=== PATIENT | male | born 1960 | race Caucasian/White ===

== ENCOUNTER 2022-08-04 01:23 | Day surgery (SDC) | payer BC, SELFPAY ==
[2022-07-27 13:09] VITALS: BMI 35.6
--- NOTE | 2022-08-03 12:42 | PM.HPGS ---
History of Present Illness History of Present Illness Consent: Risks, benefits, and alternatives have been discussed and questions answered. Patient agrees to proceed with procedure. Chief complaint: neoplasm screening, hx of colon polyps Narrative: Mir Gross is a 62 year old male who was referred for colon cancer screening. He had a colonoscopy about 4 years ago with removal of 3 polyps. Review of Systems Review of Systems: All systems reviewed & are unremarkable except as noted in HPI and below PMFSH Past Medical History Medical History Parkinsons disease Family History Family History Father Patient's father is , Onset Age: 92 Mother Family history of congestive heart failure, Onset Age: 92 Social History Social History Smoking status: Former smoker Tobacco type: cigarettes Alcohol intake: never Substance use type: does not use Living arrangements: with family Spiritual care concerns: No Meds Home Medications and Allergies Home Medications Medication Instructions Recorded Confirmed Type metoprolol succinate 50 mg 50 mg PO DAILY #90 tabs 01/12/22 07/27/22 Rx tablet,extended release 24 hr celecoxib 100 mg capsule (Celebrex) 100 mg PO BID PRN pain #30 caps 06/17/22 07/27/22 Rx clonazepam 1 mg tablet 1 mg PO DAILY PRN anx #30 tabs 06/17/22 07/27/22 Rx escitalopram oxalate 10 mg tablet 10 mg PO DAILY #30 tabs 07/13/22 07/27/22 Rx Allergies Allergy/AdvReac Type Severity Reaction Status Date / Time hydrocodone Allergy Unknown ITCHING Verified 08/04/22 07:47 Exam Const: General: alert Orientation/consciousness: patient oriented x3 Resp: Auscultation: clear to auscultation bilaterally Cardio: Rhythm: regular rhythm GI: GI Palp: Yes Soft to palpation and No Tenderness to palpation present (GI) Neuro: General: patient oriented x3 Assessment and Plan Assessment and plan (1) Colon cancer screening: Code(s): Z12.11 - Encounter for screening for malignant neoplasm of colon Status: Acute Assessment and Plan: Colonoscopy with possible biopsy or polypectomy or cautery or injection of substances.
[2022-08-04 07:48] VITALS: BP 135/91; PULSE 73; RESP 20; TEMP 36.3; O2SAT 99
[2022-08-04] MEDS: LACTATED RINGERS 1,000 ML 150 ML IV CONT (07:57)
--- NOTE | 2022-08-04 08:07 | WPDANESEPPF ---
Anes - Initial Pre Proc Eval Procedure: Operation Date: 08/04/22 09:15 Proposed Procedures p Screening Colonoscopy - Lencho Vazquez MD Date/Time: 08/04/22 08:07 Surgeon: Lencho Vazquez MD Pre Op Diagnosis: neoplasm screening, hx of colon polyps Patient Data Age: 62 Gender: M Height: 1.96 m Weight: 130.4 kg Last Vital Signs Temp 97.3 F L 08/04/22 07:48 Pulse 73 08/04/22 07:48 Resp 20 08/04/22 07:48 BP 135/91 H 08/04/22 07:48 Pulse Ox 99 08/04/22 07:48 O2 Del Method Room Air 08/04/22 07:48 Allergies Allergy/AdvReac Type Severity Reaction Status Date / Time hydrocodone Allergy Unknown ITCHING Verified 08/04/22 07:47 Home Medications Medication Instructions Recorded Confirmed Type metoprolol succinate 50 mg 50 mg PO DAILY #90 tabs 01/12/22 07/27/22 Rx tablet,extended release 24 hr celecoxib 100 mg capsule (Celebrex) 100 mg PO BID PRN pain #30 caps 06/17/22 07/27/22 Rx clonazepam 1 mg tablet 1 mg PO DAILY PRN anx #30 tabs 06/17/22 07/27/22 Rx escitalopram oxalate 10 mg tablet 10 mg PO DAILY #30 tabs 07/13/22 07/27/22 Rx Patient hx anesthesia problems: none Family hx anesthesia problems: none Results Review: All pre-operative results and documents have been reviewed as part of the pre-operative evaluation. FOR[facility], [facility] Past Medical History Medical History Parkinsons disease Family History Family History Father Patient's father is , Onset Age: 92 Mother Family history of congestive heart failure, Onset Age: 92 Social History Social History Smoking status: Former smoker Tobacco type: cigarettes Alcohol intake: never Substance use type: does not use Living arrangements: with family Spiritual care concerns: No Anes - Eval Final PreProcedure Day of Procedure 08/04/22 08:07 Patient weight: obese Heart: regular rate and rhythm Lungs: clear to auscultation Airway: Mallampati scale class II Neurological: alert and oriented Last oral intake: >/= 8 hours ASA classification: III Emergent: no Anesthetic plan: proceed Anesthesia type and monitoring: general GIVS and standard monitoring Results Review: All pre-operative results and documents have been reviewed as part of the pre-operative evaluation. Informed Consent: The patient's anesthetic plan and its attendant risks and benefits were discussed with the patient/family/POA. Questions were solicited and answers provided to the satisfaction of the patient/family/POA.
[2022-08-04 09:04] VITALS: BP 112/75; PULSE 66; RESP 16; O2SAT 96
[2022-08-04 09:14] VITALS: BP 121/76; PULSE 65; RESP 16; O2SAT 94
[2022-08-04 09:24] VITALS: BP 118/71; PULSE 66; RESP 18; O2SAT 94
== END 2022-08-04 09:34 | disposition home or self-care (01) ==
PROVIDERS: PCP Family Medicine; Visit Provider Internal Medicine Gastroenterology
PROC: 0DJD8ZZ Inspection of Lower Intestinal Tract, Via Natural or Artificial Opening Endoscopic (ICD-10-PCS; CPT 45378; principal; 2022-08-04 09:15)
DX: Z12.11 Encounter for screening for malignant neoplasm of colon (principal); K63.5 Polyp of colon; K64.8 Other hemorrhoids; G20 Parkinson's disease; Z87.891 Personal history of nicotine dependence; E66.9 Obesity, unspecified; Z68.34 Body mass index [BMI] 34.0-34.9, adult
CPT/HCPCS: 45385; 88305; J2704; J7120

== ENCOUNTER 2022-12-28 09:40 | Outpatient (CLI) | payer BC, SELFPAY ==
[2022-12-28 11:10] LABS: Kit Draw Collected
== END 2022-12-28 09:41 | disposition home or self-care (01) ==
LOC: ANHGOSHLAB 09:42
PROVIDERS: PCP Internal Medicine; Visit Provider Internal Medicine
DX: F41.9 Anxiety disorder, unspecified (principal); I10 Essential (primary) hypertension; R73.9 Hyperglycemia, unspecified
CPT/HCPCS: 36415